=== PATIENT | male | born 1970 | race Caucasian/White ===

== ENCOUNTER → 2020-04-13 08:46 | Outpatient (BNVA) | payer OTHER, SELFPAY | PROVIDERS: Family Provider Nurse Practitioner; Referring Provider Nurse Practitioner; Visit Provider Podiatrist Foot & Ankle Surgery | DX: M79.671 Pain in right foot (principal); M25.871 Other specified joint disorders, right ankle and foot | CPT/HCPCS: 73630 ==

== ENCOUNTER 2020-04-21 06:54 | Day surgery (SDC) | payer OTHER, SELFPAY ==
[2020-04-20 10:57] VITALS: BMI 36.9
--- NOTE | 2020-04-21 | SCC_ITS ---
Procedure Done: Noble osteotomy right second metatarsal CPT code 55124 1 second of fluoroscopic guidance, for a cumulative dose of .02 mGy, was provided to Dr. Alvarenga by the radiology department. C-arm images of the RIGHT foot were saved for the patient's permanent record. [facility]
[2020-04-21 07:14] VITALS: BP 148/87; PULSE 66; RESP 18; TEMP 36.4; O2SAT 96
[2020-04-21] MEDS: sodium chloride 0.9% 1,000 ML 30 ML IV (07:21)
--- NOTE | 2020-04-21 07:50 | ANES.PREANE2 ---
Pre-Anesthetic Assessment Pre-Anesthetic Assessment: Height/Weight: Height 1.8 m Weight 120.202 kg Temp Pulse Resp BP Pulse Ox 97.6 F 66 18 148/87 96 04/21/20 07:14 04/21/20 07:14 04/21/20 07:14 04/21/20 07:14 04/21/20 07:14 Preop Diagnosis: Tarsalgia right foot. Plantar plate tear right second metatarsal phalangeal joint. Proposed Procedure: Operation Date: 04/21/20 08:20 Proposed Procedures p 53789 Noble Osteotomy Right 2nd metatarsal, 57680 Correction of angular deformity, Right hallux matrixcectomy 47296 L60.3/M25.871(Right) - Vijay Alvarenga DPM s Right hallux matrixcectomy 61520(Right) - Vijay Alvarenga DPM Last intake: Intake Last Liquid Date 04/20/20 Last Liquid Time 21:30 Last Solid Date 04/20/20 Last Solid Time 23:50 Social: Social History: Alcohol (daily) and No tobacco Exam: Pre-Anes Outpt Exam: alert, oriented x 3, clear to auscultation bilaterally and regular rate & rhythm Airway: Submandibular: WNL MP: 2 Dentition: Other (teeth ok) History/ROS: No significant history except as noted Pulmonary: Pulmonary: None reported CV/HEM: CV/HEM: None reported : : None reported Hepatic: Hepatic: None reported GI: GI: None reported Metabolic: Metabolic: None reported Musc/skel: Musc/skel: None reported Neuropsych: Neuropsych: None reported Anesthetic Plan: ASA status: 2 Anesthesia: Anesthesia Evaluation, General and MAC Risk of > 500 ml blood loss (7ml/kg in children): No Meds/Allergies Current Medications: Current Medications Generic Name Dose Route Start Last Admin Trade Name Freq PRN Reason Stop Dose Admin Sodium Chloride 1,000 mls @ 30 ml s/hr 04/21/20 07:15 04/21/20 07:21 Sodium Chloride 0.9% IV 04/22/20 07:14 30 mls/hr .Q24H IMAN Administration PFSH Anesthesia PFSH: Family History (Updated 04/13/20 @ 08:32 by Karen Peres LPN) Other Diabetes Denies family history of Cancer Social History (Updated 05/21/20 @ 08:32 by Karen Peres LPN) Smoking and tobacco status: never smoked Household members: spouse and children Marital status: Current occupational status: employed Current occupation: Teacher's aid at school Data Anesthesia Cardiac Studies: No Data to Display
--- NOTE | 2020-04-21 09:12 | W.PM.OPSUD ---
Surgery/Procedure H&P Update DATE OF PROCEDURE: April 21, 2020 DATE H&P PERFORMED: 04/13/20 H&P UPDATE INFORMATION: I have reviewed H&P completed within last 30 days, I have examined patient prior to procedure, No changes to prior documentation and H&P is in [facility] EMR on date indicated PREOP DIAGNOSIS: Tarsalgia right foot. Plantar plate tear right second metatarsal phalangeal joint. PLANNED PROCEDURE: Operation Date: 04/21/20 08:20 Proposed Procedures p 07188 Noble Osteotomy Right 2nd metatarsal, 97907 Correction of angular deformity, Right hallux matrixcectomy 34992 L60.3/M25.871(Right) - Vijay Alvarenga DPM s Right hallux matrixcectomy 65687(Right) - Vijay Alvarenga DPM
[2020-04-21] MEDS: lidocaine 1% INJ 50 mL INJECTION (10:09)
--- NOTE | 2020-04-21 11:11 | XR_ITS ---
WS: [id number] RIGHT FOOT: 3 VIEW(S) TECHNIQUE: AP, oblique and lateral. HISTORY: post op COMPARISON: 04/13/2020 2 bone screws are present in the second metatarsal head. These are new since the prior study. Postope rative changes in the adjacent soft tissues. There is a very faint lucency extending now through the distal second metatarsal which may be small fractures and related to the recent procedure. This can b e reevaluated on follow-up radiograph. XR/XR foot RT min 3V* 05583 IMPRESSION: 1. Interval postoperative screw placement in the distal second metatarsal with possible small fractures in the distal second metatarsal. Anticipate follow-up radiographs. 2. Postoperative changes in the soft tissues.
[2020-04-21 11:14] VITALS: BP 125/74; PULSE 63; RESP 16; TEMP 36.6; O2SAT 98
[2020-04-21 11:36] VITALS: BP 107/65; PULSE 49; RESP 18; O2SAT 97
--- NOTE | 2020-04-24 18:24 | P.OP_ITS ---
Operative Report Date of procedure: April 21, 2020 Pre-op Diagnosis: Metatarsalgia right foot. Plantar plate tear right second metatarsal phalangeal joint Post-op diagnosis: same Procedure Done: Noble osteotomy right second metatarsal CPT code 69274 Correction of angular deformity right second toe CPT code 38519 Implants: 2.0 snap off screw x2 provided by [employer], [employer] for plant ar plate repair Pathology: none sent Surgeon: Vijay Alvarenga D.P.M. Physical Meteorologist: Brittnee Estimated blood loss: 5 cc Tourniquet time: See intraoperative documentation IV fluids: None Urine output: None Complications: None Findings: Attenuation and tear of the plantar plate laterally second metatarsal phalangeal joint right foot Condition: stable Disposition: PACU Brief History: Patient is a pleasant 49-year-old male with persistent metatarsalgia and clinical exam findings consistent with plantar plate repair with angular deformity of the second toe deviating medially. Patient has had pain in spite of conservative treatments consisting of stretching exercises, supportive shoes, orthotics, NSAIDs and strapping. Discussed risks versus benefits of a Noble osteotomy and plantar plate repair risks include pain, bleeding, numbness, infection, failure to correct deformity, overcorrection of deformity, delayed union, malunion, damage to adjacent soft tissue structures, swelling, surgical site dehiscence, need for further surgical intervention. Patient is agreeable and wishes to proceed. Procedure: Under mild sedation the patient was brought to the operating room and placed on the operating table in supine position. A timeout was performed. Anesthesia was administered by anesthesia service. Local anesthesia was injected by myself consisting of 20 cc of 0.5% Marcaine plain and a right second ray block fashion. A well-padded pneumatic tourniquet was applied to the right ankle. The right lower extremity was scrubbed, prepped and draped utilizing normal aseptic technique. The right foot was then examined you waited with a Esmarch bandage and the tourniquet was inflated to 250 mmHg. Attention was directed to the dorsum of the right second metatarsal phalangeal joint where a linear longitudinal incision was made over the proximal phalanx of the right second toe dorsally extending proximally proximal to the metatarsal phalangeal joint this was performed with a #15 blade. Dissection was carried down through skin and subcutaneous tissue utilizing a combination of sharp and blunt technique. Care was taken to retract and preserve neurovascular and tendinous structures. All bleeders were ligated and cauterized as necessary. A linear capsulotomy was performed in the head of the second metatarsal of the right foot was freed of its soft tissue attachments dorsally the lateral collateral ligaments were left intact medially and laterally. A McGlamry elevator was utilized to further release the plantar capsule. Next utilizing a sagittal saw a Noble osteotomy was performed starting 2 mm inferior to the most s uperior aspect of the articular surface of the second metatarsal head which was then shifted proximally and held utilizing a temporary point of fixation smooth K wire was utilized. The dorsal shelf was excised this was 3 mm proximal. Toe was distracted and the plantar plate was visualized it was intact medially however there was tearing and attenuation of the lateral portion of the plantar plate. This was released from its insertion on the base of the proximal phalanx plantarly which was then roughened utilizing a bone rasp. The plantar plate was then secured utilizing a scorpion suture lasso provided by [employer] per bench grinder recommendations securing the plantar plate followed by reattachment to the base of the proximal phalanx utilizing crossing drill holes and suture passing loops. Plantar plate was reapproximated in contact to the prepared plantar aspect of the proximal phalanx base had been rasped and hand tied securely excess suture was trimmed. Toes in a more rectus position especially in the sagittal and transverse plane. Incision site was flushed with copious amounts of sterile saline solution. Second metatarsal head was reduced and fixated utilizing two 2 mm snap off screws provided by [employer] that were hand tightened with excellent bony apposition and compression noted. Reduction of the angular deformity of second toe with repair of soft tissue was successful in loading the right forefoot noted to be excellent in all 3 cardinal planes. Incision site was flushed with saline solution. Capsule was reapproximated utilizing 3-0 Vicryl. Subcutaneous tissue closed utilizing 4-0 Vicryl and skin closed with 4-0 nylon. Incision site was dressed with Adaptic, sterile 4 x 4's, Kerlix, Preston wrap followed by application of cam boot. Tourniquet was deflated a nd a prompt hyperemic response was noted to the distal digits of the right foot. Patient tolerated the procedure well and was transferred to the PACU with vital signs stable and vascular status intact. Following a period of postoperative monitoring he will be discharged home is to remain partial weightbearing with Cam boot may heel touch for transfers otherwise to elevate and rest his foot is provided my cell phone number and will contact me with any postop questions or. Concerns. He will follow-up as scheduled in podiatry clinic was given pain medication to be utilized judiciously as needed.
== END 2020-04-21 11:58 | disposition home or self-care (01) ==
PROVIDERS: Family Provider Nurse Practitioner; Visit Provider Podiatrist Foot & Ankle Surgery
PROC: (CPT 28308; principal; 2020-04-21 08:20)
PROC: (CPT 11750; 2020-04-21 08:20)
DX: M77.41 Metatarsalgia, right foot (principal); M25.871 Other specified joint disorders, right ankle and foot; Z83.3 Family history of diabetes mellitus
CPT/HCPCS: 28308; 28313; 12345; 73630; 76000; C1713; C9290; J0690; J2001; J2250; J2704; J3010; J3490; J7030

== ENCOUNTER → 2020-05-04 14:29 | Outpatient (BNVA) | payer OTHER, SELFPAY | PROVIDERS: Family Provider Nurse Practitioner; Visit Provider Podiatrist Foot & Ankle Surgery | DX: Z98.890 Other specified postprocedural states (principal) | CPT/HCPCS: 73630 ==

== ENCOUNTER 2020-05-04 14:58 | Outpatient (CLI) | payer OTHER, SELFPAY | END 2020-05-04 14:59 | disposition home or self-care (01) | LOC: SPT 15:00 | PROVIDERS: Family Provider Nurse Practitioner; Visit Provider Podiatrist Foot & Ankle Surgery | DX: Z47.89 Encounter for other orthopedic aftercare (principal) | CPT/HCPCS: 97760; L3100 ==

== ENCOUNTER → 2020-05-17 09:37 | Outpatient (BNVA) | payer OTHER, SELFPAY | PROVIDERS: Family Provider Nurse Practitioner; Visit Provider Podiatrist Foot & Ankle Surgery | DX: Z98.890 Other specified postprocedural states (principal); M25.871 Other specified joint disorders, right ankle and foot | CPT/HCPCS: 73630 ==

== ENCOUNTER → 2020-05-31 13:25 | Outpatient (BNVA) | payer OTHER, SELFPAY | PROVIDERS: Family Provider Nurse Practitioner; Visit Provider Podiatrist Foot & Ankle Surgery | DX: M77.31 Calcaneal spur, right foot (principal); Z98.890 Other specified postprocedural states | CPT/HCPCS: 73630 ==

== ENCOUNTER 2021-12-06 14:51 | Outpatient (CLI) | payer OTHER, SELFPAY ==
[2021-12-06 07:07] VITALS: BP 130/87; PULSE 68; RESP 16; TEMP 36.2; O2SAT 97
[2021-12-06 14:45] VITALS: BP 134/86; PULSE 74; RESP 18; TEMP 36.2; O2SAT 97; BMI 36.2
[2021-12-06 15:38] VITALS: BP 134/91; PULSE 68; RESP 18; TEMP 36.6; O2SAT 96
== END 2021-12-06 14:52 | disposition home or self-care (01) ==
PROVIDERS: PCP Nurse Practitioner; Visit Provider Nurse Practitioner Family
DX: U07.1 COVID-19 (principal)
CPT/HCPCS: 96365

== ENCOUNTER → 2024-04-28 08:50 | Outpatient (BNVA) | payer OTHER, SELFPAY | PROVIDERS: PCP Nurse Practitioner; Referring Provider Nurse Practitioner; Visit Provider Surgery | DX: Z12.11 Encounter for screening for malignant neoplasm of colon (principal) | CPT/HCPCS: 99203 ==

== ENCOUNTER 2024-06-01 07:43 | Day surgery (SDC) | payer OTHER, SELFPAY ==
[2024-06-01 07:56] VITALS: BP 160/84; PULSE 76; RESP 18; TEMP 36.3; O2SAT 93; BMI 36.9
[2024-06-01] MEDS: sodium chloride 0.9% 1,000 ML 30 ML IV (08:00)
--- NOTE | 2024-06-01 08:22 | W.PM.OPSFHP ---
Same Day Surgery H&P Indication for Procedure/HPI DATE OF PROCEDURE: June 01, 2024 CHIEF COMPLAINT/INDICATIONFOR SURGICAL PROCEDURE: need for screening colonoscopy PREOP DIAGNOSIS: nee dfor screening colonoscopy PLANNED PROCEDURE: Operation Date: 06/01/24 09:05 Proposed Procedures p Colonoscopy 84588, Z12.11(Not Applicable) - José Antonio Springer MD Medications/Allergies* Home Medications Medication Instructions Recorded Confirmed Type Vitamin D (with calcium) 1 tab PO DAILY 05/26/24 06/01/24 History Allergies/Adverse Reactions Allergy/AdvReac Type Severity Reaction Status Date / Time No Known Allergies Allergy Verified 06/01/24 07:55 Current Medications: Generic Name Dose Route Start Last Admin Trade Name Freq PRN Reason Stop Dose Admin Sodium Chloride 1,000 mls @ 30 mls/hr 06/01/24 08:00 06/01/24 08:00 Sodium Chloride 0.9% IV 30 mls/hr .Q24H IMAN Administration Pertinent History/Comorbid Conditions* Surgical History (Updated 05/17/20 @ 10:44 by Vijay Alvarenga DPM) History of hernia surgery Family History (Updated 04/13/20 @ 08:32 by Karen Peres LPN) Diabetes Denies family history of Cancer Social History Smoking and tobacco/nicotine status: never used tobacco/nicotine Household members: spouse and children Marital status: Current occupational status: employed Current occupation: Teacher's aid at school Pertinent Exam Findings alert, oriented x 3, clear to auscultation bilaterally and regular rate & rhythm Recommendations Surgery/Procedure today Coding Level of Care Code Acute Code for Chg Fwd
--- NOTE | 2024-06-01 08:53 | ANES.PREANE2 ---
Pre-Anesthetic Assessment Height/Weight: Height 1.8 m Weight 120.202 kg Temp Pulse Resp BP Pulse Ox O2 Del Method 97.4 F L 76 18 160/84 93 Room Air 06/01/24 07:56 06/01/24 07:56 06/01/24 07:56 06/01/24 07:56 06/01/24 07:56 06/01/24 07:56 Preop Diagnosis: nee dfor screening colonoscopy Operation Date: 06/01/24 09:05 Proposed Procedures p Colonoscopy 55593, Z12.11(Not Applicable) - José Antonio Springer MD Was Beta Kal taken within 24 hours: N/A Was Clonidine taken within 24 hours: N/A Last intake: Intake Last Liquid Date 05/31/24 Last Liquid Time 23:00 Last Solid Date 05/30/24 Last Solid Time 18:00 Social Alcohol Exam alert, oriented x 3, clear to auscultation bilaterally and regular rate & rhythm Airway Submandibular: within normal limits Cervical ROM: within normal limits Mallampati: Class II Dentition: full History/ROS No significant history except as noted and No significant complaints Pulmonary None reported CV/HEM None reported None reported Hepatic None reported GI None reported Metabolic None reported Musc/skel None reported Neuropsych None reported Anesthetic Plan ASA status: 2 Anesthesia: Anesthesia Evaluation and MAC Risk of > 500 ml blood loss (7ml/kg in children): No Medications/Allergies Home Medications Medication Instructions Recorded Confirmed Last Taken Type Vitamin D (with calcium) 1 tab PO DAILY 05/26/24 06/01/24 05/30/24 History Allergies Allergy/AdvReac Type Severity Reaction Status Date / Time No Known Allergies Allergy Verified 06/01/24 07:55 Current Medications Generic Name Dose Route Start Last Admin Trade Name Freq PRN Reason Stop Dose Admin Sodium Chloride 1,000 mls @ 30 mls/hr 06/01/24 08:00 06/01/24 08:00 Sodium Chloride 0.9% IV 30 mls/hr .Q24H IMAN Administration PFSH Anesthesia Surgical History History of hernia surgery Family History Other Diabetes Denies family history of Cancer Social History Smoking and tobacco/nicotine status: never used tobacco/nicotine Household members: spouse and children Marital status: Current occupational status: employed Current occupation: Teacher's aid at school Data Anesthesia Cardiac Studies: No Data to Display
[2024-06-01 09:26] VITALS: BP 96/63; PULSE 53; RESP 12; TEMP 36.3; O2SAT 93
[2024-06-01 09:40] VITALS: BP 107/63; PULSE 58; RESP 16; O2SAT 93
[2024-06-01 09:48] VITALS: BP 101/64; PULSE 58; RESP 16; O2SAT 93
--- NOTE | 2024-06-01 10:05 | ANE.PACU2 ---
Inpatient post-anesthesia follow up: Airway intact: Yes Vital signs: Temperature 97.4 F Pulse Rate 58 Respiratory Rate 16 Blood Pressure 101/64 Pulse Oximetry 93 Oxygen Delivery Me thod Room Air Oxygen Flow Rate 4 Fraction of Inspir ed Oxygen Hydration adequate: Yes Nausea and vomiting: No Pain level: 1 Mental status: Baseline
== END 2024-06-01 10:09 | disposition home or self-care (01) ==
PROVIDERS: PCP Nurse Practitioner; Visit Provider Surgery
PROC: 0DJD8ZZ Inspection of Lower Intestinal Tract, Via Natural or Artificial Opening Endoscopic (ICD-10-PCS; CPT 45378; principal; 2024-06-01 09:05)
DX: Z12.11 Encounter for screening for malignant neoplasm of colon (principal); K57.30 Diverticulosis of large intestine without perforation or abscess without bleeding; D12.3 Benign neoplasm of transverse colon
CPT/HCPCS: 45380; 88305; J2704; J3490; J7030

== ENCOUNTER → 2024-07-02 11:06 | Outpatient (BNVA) | payer OTHER, SELFPAY | PROVIDERS: PCP Nurse Practitioner; Visit Provider Surgery | DX: Z09 Encounter for follow-up examination after completed treatment for conditions other than malignant neoplasm (principal) | CPT/HCPCS: G0463 ==

== ENCOUNTER → 2025-06-23 13:24 | Outpatient (BNVA) | payer OTHER, SELFPAY | PROVIDERS: PCP Nurse Practitioner; Referring Provider Nurse Practitioner; Visit Provider Specialist | DX: M79.642 Pain in left hand (principal); G56.03 Carpal tunnel syndrome, bilateral upper limbs | CPT/HCPCS: 95911 ==